=== PATIENT | male | born 1965 | race Caucasian/White ===

== ENCOUNTER → 2016-10-11 | Outpatient (CLI) | payer OTHER | LOC: RAD 09:50 | DX: R07.81 Pleurodynia (principal) ==

== ENCOUNTER → 2019-05-09 | Outpatient (CLI) | payer OTHER | LOC: CAT 10:52 | DX: Z13.6 Encounter for screening for cardiovascular disorders (principal); E78.00 Pure hypercholesterolemia, unspecified; I25.10 Atherosclerotic heart disease of native coronary artery without angina pectoris ==